=== PATIENT | female | born 1950 | race Caucasian/White ===

== ENCOUNTER → 2017-10-02 | Outpatient (CLI) | payer MEDICARE, OTHER ==
[~2017-10-02] MED LIST: ADRENACLIC0.15 MG/0. IM; LABETALOL; MEDROLDOSEPACK PO; MOBIC; VISTARIL 25 MG25 M1 OR
== END ==
LOC: M.RAD 09:13
DX: Z12.31 Encounter for screening mammogram for malignant neoplasm of breast (principal)

== ENCOUNTER → 2018-10-02 | Outpatient (CLI) | payer MEDICARE, OTHER | LOC: M.RAD 08:41 | DX: Z12.31 Encounter for screening mammogram for malignant neoplasm of breast (principal) ==

== ENCOUNTER → 2019-10-04 | Outpatient (CLI) | payer MEDICARE, OTHER | LOC: M.RAD 08:28 | PROVIDERS: ATTEND Nurse Practitioner Family | DX: Z12.31 Encounter for screening mammogram for malignant neoplasm of breast (principal) ==

== ENCOUNTER 2019-10-19 10:36 | Emergency (ER) | payer MEDICARE, OTHER ==
[~2019-10-19] VITALS: Ht 167.6 cm; Wt 104.3 kg
[2019-10-19] MEDS ORDERED: LEVO-T25 MCG PO (10:47)
[2019-10-19] MEDS ORDERED: FISH OIL 1,0001 EAC9 PO (10:47)
[2019-10-19 12:21] LABS: ABSOLUTE BASOPHILS 0.1 thou/uL (0.0-0.2); ABSOLUTE EOSINOPHILS 0.2 thou/uL (0.0-0.7); ABSOLUTE LYMPHOCYTES 2.4 thou/uL (0.8-5.3); ABSOLUTE MONOCYTES 0.7 thou/uL (0.0-1.2); BASOPHILS 1.1 %; EOSINOPHILS 2.7 %; HEMATOCRIT 41.8 % (37.0-47.0); HEMOGLOBIN 14.1 gm/dL (12.0-15.0); LYMPHOCYTES 28.7 %; MCH 28.6 pg (26.0-34.0); MCHC 33.6 g/dL (28.0-37.0); MCV 85.1 fL (80.0-100.0); MONOCYTES 8.6 %; MPV 9.5 fl. (7.2-11.1); NUCLEATED RBCS 0 /100WBC; PLATELET COUNT* 329 thou/uL (150-400); POLYS 58.9 %; RBC 4.91 mil/uL (4.20-5.00); RDW-CV 14.8 % (10.5-14.5); WBC 8.4 thou/uL (4.0-11.0)
[2019-10-19 12:38] LABS: CREATININE 1.4 mg/dL (0.6-1.3); POTASSIUM 4.1 mmol/L (3.5-5.1)
[2019-10-19 12:40] LABS: BE -3.8 mmol/L (-2 to +3); PCO2 24.3 mmHg (35.0-45.0); PO2 98.3 mmHg (75.0-100.0); pH 7.481 (7.340-7.450)
[2019-10-19 12:43] LABS: ALBUMIN 4.1 g/dL (3.4-5.0); TOTAL BILIRUBIN 0.4 mg/dL (<0.1-1.0); TOTAL PROTEIN 7.8 g/dL (6.4-8.2)
[2019-10-19] MEDS ORDERED: CARAFATE 1 GM TA1 GM PO (14:24)
[2019-10-19 14:39] VITALS: BP 119/77
--- NOTE | 2019-10-19 16:08 | EKG ---
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: ARNOLD : 1950 Requested By: Bonita Finley Order Number: [id number] MD: Mayo Garnett Measurements Intervals [place] Rate: 143 P: 0 [place]: 64 QRS: -12 QRSD: 179 T: -14 QT: 356 QTc: 549 Interpretive Statements Sinus tachycardia Marked baseline artifact LAE, consider biatrial enlargement Artifact in lead(s) aVR,aVL,V1,V2,V3,V4,V5,V6 No previous ECG available for comparison Electronically Signed On 10-19-2019 16:08:09 CDT by Mayo Garnett [email or web address] <ELECTRONICALLY SIGNED> By: Mayo Garnett MD, [facility] 10/19/19 1608 1214 1214 Mayo Garnett MD, [facility] /EPI
== END 2019-10-19 14:39 | disposition home or self-care (01) ==
LOC: M.ERS 10:36
PROVIDERS: Personal Emergency Response Attendant
DX: K21.9 Gastro-esophageal reflux disease without esophagitis (principal); R14.2 Eructation; I10 Essential (primary) hypertension; M19.90 Unspecified osteoarthritis, unspecified site; Z91.041 Radiographic dye allergy status

== ENCOUNTER → 2020-10-04 | Outpatient (CLI) | payer MEDICARE, OTHER ==
[~2020-10-04] MED LIST changes: +CARAFATE 1 GM TA1 GM PO; +FISH OIL 1,0001 EAC9 PO; +LEVO-T25 MCG PO
== END ==
LOC: M.RAD 08:00
PROVIDERS: ATTEND Nurse Practitioner Family
DX: Z12.31 Encounter for screening mammogram for malignant neoplasm of breast (principal); N64.89 Other specified disorders of breast

== ENCOUNTER 2020-11-26 13:42 | Emergency (ER) | payer MEDICARE, OTHER ==
[~2020-11-26] VITALS: Ht 167.6 cm; Wt 93.0 kg
[2020-11-26] MEDS ORDERED: MELOXICAM15 MG PO (14:15)
[2020-11-26] MEDS ORDERED: FAMOTIDINE 20 M20 MG PO (15:07)
[2020-11-26] MEDS ORDERED: PREDNISONE 20 M20 MG PO (15:07)
[2020-11-26] MEDS ORDERED: BENADRYL25 MG PO (15:07)
[2020-11-26 15:43] VITALS: BP 122/68
== END 2020-11-26 15:43 | disposition home or self-care (01) ==
LOC: M.ERS 13:42
DX: T63.461A Toxic effect of venom of wasps, accidental (unintentional), initial encounter (principal); L53.0 Toxic erythema; I10 Essential (primary) hypertension; M19.90 Unspecified osteoarthritis, unspecified site; K21.9 Gastro-esophageal reflux disease without esophagitis; Z79.899 Other long term (current) drug therapy; Z91.041 Radiographic dye allergy status; Y92.89 Other specified places as the place of occurrence of the external cause